=== PATIENT | female | born 1940 | race Caucasian/White ===

== ENCOUNTER → 2021-02-28 08:53 | Outpatient (BNVA) | payer MEDICARE, SELFPAY | PROVIDERS: PCP Internal Medicine; Visit Provider Hospitalist | DX: R91.8 Other nonspecific abnormal finding of lung field (principal); A31.9 Mycobacterial infection, unspecified; J41.8 Mixed simple and mucopurulent chronic bronchitis; R05 Cough | CPT/HCPCS: 99212 ==

== ENCOUNTER → 2021-08-08 08:47 | Outpatient (BNVA) | payer MEDICARE, SELFPAY | PROVIDERS: PCP Physician Assistant Medical; Visit Provider Hospitalist | DX: J41.8 Mixed simple and mucopurulent chronic bronchitis (principal); R91.8 Other nonspecific abnormal finding of lung field; R05 Cough; A31.9 Mycobacterial infection, unspecified | CPT/HCPCS: 99212 ==

== ENCOUNTER 2021-08-12 11:50 | Outpatient (REF) | payer MEDICARE, SELFPAY ==
--- NOTE | 2021-08-12 11:58 | ECG_ITS ---
Test Reason : copd Blood Pressure : / mmHG Vent. Rate : 072 BPM Atrial Rate : 072 BPM P-R Int : 148 ms QRS Dur : 060 ms QT Int : 364 ms P-R-T Axes : 008 -22 -16 degrees QTc Int : 398 ms Normal sinus rhythm Inferior infarct , age undetermined Abnormal ECG When compared with ECG of 26-MAY-2003 20:28, Inferior infarct is now Present Inverted T waves have replaced nonspecific T wave abnormality in Inferior leads Referred By: Marcellus Can Electronically Signed By:ANA VALLES
[2021-08-12 13:29] LABS: MANUAL DIFF FLAG NO
[2021-08-12 13:39] LABS: Basophils Percent Auto 0.7 % (0-2); Eosinophils Absolute Auto 0.1 X10*3/uL (0.0-0.4); Hematocrit 40.6 % (37-47); Hemoglobin 13.2 g/dl (12.0-16.0); Imm Gran Abs Auto 0.03 X10*3/uL (0.00-0.03); Imm Gran Pct Auto 0.5 % (0.0-0.4); Lymphocytes Absolute Auto 1.4 X10*3/uL (1.2-4.9); Lymphocytes Percent Auto 23.5 % (20-40); Mean Corpuscular HGB Conc 32.5 g/dl (31.0-35.0); Mean Corpuscular Hemoglobin 32.1 pg (27.0-33.0); Mean Corpuscular Volume 98.8 fL (80-98); Mean Platelet Volume 10.9 fL (9.4-12.3); Monocytes Absolute Auto 0.5 X10*3/uL (0.1-1.2); Neutrophils Absolute Auto 3.9 X10*3/uL (2.0-8.3); Neutrophils Percent Auto 65.3 % (45-73); Platelet Count 223 X10*3/uL (160-400); Red Blood Count 4.11 X10*6/uL (4.20-5.50); Red Cell Distribution Width 14.1 % (11.0-16.0)
[2021-08-12 13:54] LABS: Alanine Aminotransferase 20 U/L (0-31); Albumin Level 4.3 g/dL (3.5-5.0); Alkaline Phosphatase 87 U/L (39-117); Anion Gap 13 (12-20); Aspartate Amino Transferase 27 U/L (5-31); Bilirubin Direct 0.3 mg/dL (0.0-0.5); Blood Urea Nitrogen 12 mg/dL (9-16); Calcium 10.5 mg/dL (8.4-10.2); Carbon Dioxide 29 mmol/L (22-29); Chloride 101 mmol/L (96-108); Estimated Glomerular Filt Rate > 60; Glucose Random 82 mg/dL (60-115); Potassium 4.3 mmol/L (3.3-5.1); Sodium 139 mmol/L (135-145); Total Protein 7.1 g/dL (6.5-8.0)
[2021-08-12 14:19] LABS: Erythrocyte Sedimentation Rate 11 MM/HR (0-20)
== END 2021-08-12 11:51 | disposition home or self-care (01) ==
LOC: HO.LAB 11:50
PROVIDERS: PCP Physician Assistant Medical; Visit Provider Hospitalist
DX: J41.8 Mixed simple and mucopurulent chronic bronchitis (principal); A31.9 Mycobacterial infection, unspecified; R91.8 Other nonspecific abnormal finding of lung field
CPT/HCPCS: 36415; 80048; 80076; 85025; 85652; 93005

== ENCOUNTER → 2021-10-11 08:49 | Outpatient (BNVA) | payer MEDICARE, SELFPAY | PROVIDERS: PCP Physician Assistant Medical; Visit Provider Hospitalist | DX: J41.8 Mixed simple and mucopurulent chronic bronchitis (principal); R91.8 Other nonspecific abnormal finding of lung field; R05.9 Cough, unspecified; A31.9 Mycobacterial infection, unspecified | CPT/HCPCS: 99212 ==

== ENCOUNTER → 2022-05-18 10:45 | Outpatient (BNVA) | payer MEDICARE, SELFPAY | PROVIDERS: PCP Physician Assistant Medical; Visit Provider Hospitalist | DX: R91.8 Other nonspecific abnormal finding of lung field (principal); A31.9 Mycobacterial infection, unspecified; J41.8 Mixed simple and mucopurulent chronic bronchitis; R05.9 Cough, unspecified | CPT/HCPCS: 99212 ==

== ENCOUNTER → 2022-12-05 13:18 | Outpatient (BNVA) | payer MEDICARE, SELFPAY | PROVIDERS: PCP Internal Medicine; Visit Provider Hospitalist | DX: A31.9 Mycobacterial infection, unspecified (principal); J41.8 Mixed simple and mucopurulent chronic bronchitis; R91.8 Other nonspecific abnormal finding of lung field; R05.9 Cough, unspecified | CPT/HCPCS: 99212 ==

== ENCOUNTER → 2023-03-27 14:38 | Outpatient (BNVA) | payer MEDICARE, SELFPAY | PROVIDERS: PCP Internal Medicine; Visit Provider Hospitalist | DX: J41.8 Mixed simple and mucopurulent chronic bronchitis (principal); A31.9 Mycobacterial infection, unspecified; R91.8 Other nonspecific abnormal finding of lung field | CPT/HCPCS: 99212 ==

== ENCOUNTER 2023-08-14 15:35 | Outpatient (AMB) | payer MEDICARE, SELFPAY ==
[2023-08-14 15:40] VITALS: PULSE 70; O2SAT 96; BMI 22.8
--- NOTE | 2023-08-14 15:40 | MHC.OFFVIS ---
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 She has been using the Breo. However, has been complaining of worsening productive cough moderate severity. Typically worse at night time. She does take cough syrup with some relief. She also has dyspnea on exertion mild in severity. Does get better with rest. Will try to optimize respiratory therapy. Or dysphonia will be difficult for her to tolerate a full treatment for non tuberculosis organisms. We will try for a good start a single agent at this time and will see if she tolerates additional agents in the future. Responding well to the Trelegy. Has been using the Azithromycin M/W/. Dyspnea and cough better. Not requiring her IVAN. Will need to have EKG to monitor her QT. Her chest x-ray was relatively stable with no acute disease which is reassuring. There she was given azithromycin medications at ultimately made feel better. But she became concerned with the medications she was taking in the therapies that potentially could have resulted in that side effect. Therefore she stop all her medicines. She has been concerning about also the nasal rinsing and she also stop that. She does have the Wixela inhaler that she has use it without any difficulties. We agreed to stop the azithromycin at this time. Will reassess in 3-4 months. She should have an x-ray at that time. 07/11/2020 The patient is here for pulmonary follow-up visit. Overall she is about the same she continues with a cough which is typically worse at nighttime in the also in the morning. Ixne-nk-qkfxmghn severity. She has been taking the Wixela but has not really been helping and she is thinking about stopping it altogether. She is also not taking the azithromycin at this time. She did have a CT scan of the chest back in December at [facility] that we reviewed together which demonstrated that she has some interval worsening pulmonary nodules largest 1 measuring 1.3 cm. This concerning for the possibility of malignancy specially with her persistent cough. We did talk about different options and agree that a PET scan will be most suitable at this time to help was with the management of this large pulmonary nodule. 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 I did also review the x-ray she had in May, but, x-rays was not helpful. 08/23/2020 the patient is here for pulmonary follow-up visit. Overall she is doing well. She does have a cough stgc-iz-ovcwwyrf severity. Typically nonproductive. She did undergo bronchoscopy with thoracic surgery to assess her pet avid pulmonary nodule. Demonstrated inflammatory changes without any malignant. 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 At this point the patient is relatively asymptomatic. She rather not take the anti microbial therapy at this time. Also she is concerned about the high risk of relapse at this time. Will continue to watch and monitor the patient, but, note therapy is indicated at this time. 02/28/2021 the patient is here for pulmonary follow-up visit. Overall the patient is doing well from a respiratory status. She has not had to use her rescue inhaler. Continues to have a cough at nighttime. Moderate severity. Usually she uses cough syrup with good effect. Usually nonproductive. In addition to that she her breathing has been well and has not been a issue. She has not use any inhalers at this time. She was evaluated by thoracic surgery in did have a navigational bronchoscopy demonstrating no evidence of any malignancy at that larger nodular density. Ultimately her last PET scan was back in June 2020. Will plan to do a repeat CT scan to assess the nodular disease in June 2021. 08/08/2021 the patient is here for a pulmonary follow-up visit. She has been complaining worsening cough. Seems to be nonproductive in nature. Seems to be worse when she lies flat. Moderate severity. She does get headaches and chest discomfort from coughing so hard. She does take bzaj-cvc-ztcgaqt cough medication with some partial relief of symptoms. In addition to that she did have a repeat CT scan of the chest at she could be [facility]. It appears that she has a new pulmonary nodule measuring a cm in size. 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 However cannot rule out malignant process. At this point will be reasonable to treat the patient for mycobacteria disease and see if some of these nodules improved. Patient will have very short follow-up between 3-4 months to assess the nodular densities. The patient will start therapy initially with the rifampin and the azithromycin. We will see how she tolerates that. If he seems to be tolerating it that we can always add the INH to it. She will use the therapies 3 times a week. I will have the patient come back and get an EKG and chest x-rays to make sure that she is tolerating the medicine. 10/11/2021 the patient is here for a pulmonary follow-up visit. Since we last spoke the patient did try to start the anti mycobacterial therapy. Unfortunately after just a short course she develops significant GI symptoms and she could not tolerate the medications and had to stop it. Ultimately she has been doing well denies any worsening shortness of breath. She does have an intermittent cough which is qrcj-ek-ezerdsgk in nature. Usually nonproductive in nature. Again we talked about her CT scan of the chest demonstrating multiple pulmonary nodules. Her largest nodule is irregular in nature and measuring around 1.4-1.5 cm in size. Therefore, will have a repeat the CT scan sometime in the spring 2021 to see if there is any interval progression of this nodular density. In addition to that we did speak about considering monotherapy for the mycobacterial infection in case of her symptoms are getting worse or if he has any worsening findings on her CT scan. 05/18/2022 the patient is here for a pulmonary follow-up visit. Overall she is doing well. She continues to have cough which is moderate severity. Usually productive. This is typical of the mycobacteria infection. Again, the patient did not tolerate the triple cocktail therapy gets non tuberculosis mycobacterial disease. This therapy is very Side effect prone. We did review her most recent CT scan from January 2022 demonstrating some waxing waning pulmonary nodules but some of the nodules appear to be also enlarging in size. Again, this could also be related to her mycobacterial disease. But, malignancy is also in differential could therefore, the patient is agreeable to start azithromycin as a single agent therapy for the mycobacterial disease. She understands that this increased risk of resistance with just monotherapy. But, this but she can tolerate at this time. Another option would be inhaled amikacin which is been shown to be very effective against MAC as well and she may be able to tolerated in conjunction with the azithromycin. In the meantime will have her repeat a CT scan of the chest in 6 months to reassess her nodular densities. 12/05/2022 the patient is here for a pulmonary follow-up visit. The patient now is residing [facility]. Her son monitors her watches over her very closely. He sets her medications and the patient does have nursing available. She has complained of increasing cough. The cough typically is worse in the morning. Moderate severity. Denies any chest pains or any shortness of breath. She was admitted to [facility] where she had a CT scan of the chest. There it demonstrated that most of her nodular density had increased in size now about 10 mm in size. In addition to that she has bronchiectatic changes. I did speak to the son about the findings. I explained to the patient and son that this is likely infectious process resulting in the nodular disease. Specially with the mycobacterial infection. However, malignancy is also in differential more cannot rule it out. Therefore will continue to monitor the progression of the nodules. Will also increase her chest physical therapy by having her perform nebulized therapy once or twice a day. 08/14/2023 the patient is here for a pulmonary follow-up visit. Overall she is doing well from a respiratory status. Still has a cough which is intermittent. But the chest congestion has improved dramatically. She has responded well to the azithromycin. [facility] because of her dementia. The patient has not been able to use a nebulizer because is broken beyond repair. Will going to request air replacement machine for her at this time. The patient needs to have her nebulizer for chest physical therapy. Also she has been in the azithromycin 3 times a week. Will be monitoring her EKG. But now with her stable respiratory status and decreased chest congestion will go ahead and decrease the medication deescalate the dose down to 250 mg 3 times a week. The hope is that we can minimize and find the lowest most effective dose to avoid adverse effects specially with her age and other polypharmacy. therefore she will continue the therapy and follow-up in 6 months. [facility] Medical History COPD (chronic obstructive pulmonary disease) Cough Mycobacterial disease Pulmonary nodules Social History (Updated 08/08/21 @ 08:57 by GRIS Lopez) Patient Tobacco Use Status: Never used Tobacco Review of Systems Const Denies night sweats ENT Denies change in voice, Denies lip swelling, Denies mouth pain, Reports nasal congestion, Reports nasal discharge and Denies tongue swelling Card Denies chest pain Resp Denies chest congestion, Reports cough and Denies pain on inspiration GI Denies abdominal pain Musc Denies no additional complaints Neuro Denies Neuro-related abnormal movements Psych Denies no additional complaints [place]/Lymph Denies easy bleeding and Denies lymphadenopathy Aller/Immun Denies lip swelling and Denies tongue swelling Physical Exam Vital Signs: Last Vital Signs Pulse 70 08/14/23 15:40 Pulse Ox 96 08/14/23 15:40 Oxygen Delivery Method Room Air 08/14/23 15:40 BMI result Body Mass Index 22.8 Const General: alert Orientation/consciousness: patient oriented x3 HEENT Head: Yes normocephalic Neck Neck: Yes normal visual inspection, Yes full ROM and Yes no lymphadenopathy Chest Chest palpation & inspection: normal inspection of the chest Resp Effort & Inspection: Actively coughing Quality: dry Auscultation: no rhonchi, no wheezes and diminished lung sounds Cardio Rate: regular rate Rhythm: regular rhythm Heart sounds: S1 normal heart sound present and S2 normal heart sound present GI Palpation (GI): Soft to palpation and nontender Auscultation: normal bowel sounds Skin General skin exam: rashes and/or lesions noted Neuro General: patient oriented x3 Extrem General: Yes no clubbing, cyanosis or edema Assessment & Plan Assessment & Plan (1) Mycobacterial disease: Code(s): A31.9 - Mycobacterial infection, unspecified (2) COPD (chronic obstructive pulmonary disease): Code(s): J44.9 - Chronic obstructive pulmonary disease, unspecified Qualifiers: COPD type: chronic bronchitis Chronic bronchitis type: mixed simple and mucopurulent Qualified Code(s): J41.8 - Mixed simple and mucopurulent chronic bronchitis (3) Cough: Code(s): R05 - Cough Qualifiers: Cough type: chronic Qualified Code(s): R05.3 - Chronic cough (4) Pulmonary nodules: Code(s): R91.8 - Other nonspecific abnormal finding of lung field Plan decrease azithromycin 250 3 times a week The patient will need serial EKGs to make sure that she is tolerating the therapy benzonatate for cough as needed Robitussin DM as needed nebulizer therapy followed by acapella valve twice a day as needed. Needs a new nebulizer to replace broken one F/U [address] chest Medications: New azithromycin Take 1 tablet on Sunday/Sunday/Sunday 250 mg PO 3XW 28 days 12 tabs 6RF K21.9 - Gastro-esophageal reflux disease without esophagitis Discontinued azithromycin Discontinued Reason: Doctor's Order 500 mg PO 3XW 13 tabs 5RF Coding Level of Care Code Est Pt Level 4 (09576) Diagnoses Mycobacterial disease A31.9 Mixed simple and mucopurulent chronic bronchitis J41.8 COPD type: chronic bronchitis Chronic bronchitis type: mixed simple and mucopurulent Chronic cough R05.3 Cough type: chronic Pulmonary nodules R91.8 Time Spent (min) 17
== END 2023-08-14 16:00 | disposition home or self-care (01) ==
PROVIDERS: PCP Internal Medicine; Visit Provider Hospitalist
DX: A31.9 Mycobacterial infection, unspecified (principal); J41.8 Mixed simple and mucopurulent chronic bronchitis; R05.3 Chronic cough; R91.8 Other nonspecific abnormal finding of lung field
CPT/HCPCS: 99214

== ENCOUNTER → 2023-08-14 15:35 | Outpatient (BNVA) | payer MEDICARE, SELFPAY | PROVIDERS: PCP Internal Medicine; Visit Provider Hospitalist | DX: J41.8 Mixed simple and mucopurulent chronic bronchitis (principal); R91.8 Other nonspecific abnormal finding of lung field; R05.3 Chronic cough; A31.9 Mycobacterial infection, unspecified | CPT/HCPCS: 99212 ==